=== PATIENT | female | born 1955 | race Caucasian/White ===

== ENCOUNTER 2018-12-16 19:06 | Emergency (ER) | payer BC, OTHER ==
[2018-12-16 19:19] VITALS: BP 159/78; PULSE 74; TEMP 98; BMI 33.1
[2018-12-16] MEDS ORDERED: KETOROLAC TROMETHAMINE 30 MG/1 ML VIAL IVPUSH ONE (20:03)
[2018-12-16] MEDS ORDERED: SODIUM CHLORIDE 1,000 ML IV ONE (20:03)
[2018-12-16] MEDS ORDERED: ONDANSETRON 4 MG/2 ML VIAL IVPUSH ONE (20:03)
[2018-12-16] MEDS ORDERED: KETOROLAC TROMETHAMINE 30 MG/1 ML VIAL ONE (20:09)
[2018-12-16] MEDS ORDERED: ONDANSETRON 4 MG/2 ML VIAL ONE (20:09)
--- NOTE | 2018-12-16 20:24 | PDOC ---
Documentation entered by Micki Morel SCRIBE, acting as scribe for Patti Nair MD. Patti Nair MD: This documentation has been prepared by the amandeepibe, Micki Morel SCRIBE, under my direction and personally reviewed by me in its entirety. I confirm that the documentation accurately reflects all work , treatment, procedures, and medical decision making performed by me. History of Present Illness - General Chief Complaint: Pain, Acute Stated Complaint: RT FLANK/ABD PAIN History Source: Patient Exam Limitations: No Limitations - History of Present Illness Initial Comments: 12/16/18 20:19 The patient is a 63-year-old female who presents to the emergency department with right flank pain and nausea. The patient reports on [employer] shift lead she was laying down on her left side when her put his hand over her right flank. The patient states she felt an immediate pain to the area and got up. The patient states she took some aleve, with relief. The patient reports since then the pain has been fluctuating in severity, associated with nausea and constipation. The patient reports the pain is aggravated with laying on her left side, bending or twist, with relief noted when laying on her right side. The patient reports a history of shingles and indicates the past 2 episodes have been similar to his symptoms. PAST MEDICAL HISTORY: Shingles, diverticulitis and asthma. PAST SURGICAL HISTORY: no significant history FAMILY HISTORY: no pertinent history SOCIAL HISTORY: Pt lives with family and is retired. MEDICATIONS: reviewed ALLERGIES: As per nursing notes General: No fevers or chills, no weakness, no weight loss HEENT: No change in vision. No sore throat,. No ear pain CardioVascular: No chest pain or shortness of breath Respiratory:No cough, or wheezing. Gastrointestinal: +nausea and constipation. No vomiting or diarrhea. No rectal bleeding Genitourinary: No dysuria, hematuria, or frequency Musculoskeletal: +right flank pain. No other joint or muscle pain or swelling Neurologic: No headache, vertigo, dizziness or loss of consciousness Psychiatric: nor depression Skin: No rashes or easy bruising Endocrine: no increased thirst or abnormal weight change Allergic: no skin or latex allergy All other systems reviewed and normal GENERAL: The patient is awake, alert, and fully oriented, in no acute distress. HEAD: Normal with no signs of trauma. EYES: Pupils equal, round and reactive to light, extraocular movements intact, sclera anicteric, conjunctiva clear. BACK: +tenderness on palpation to the right CVA area with questionable beginning vesicular rash/shingles. Lung: Lungs clear to auscultation bilateral EXTREMITIES: Normal range of motion, no edema. NEUROLOGICAL: Normal speech, normal gait. PSYCH: Normal mood, normal affect. SKIN: Warm, Dry, normal turgor, no rashes or lesions noted. 12/16/18 20:23 Assessment and plan: This is a 63-year-old female who comes in complaining of right flank pain. Patient has pain in a similar distribution to a dermatome. Patient said she has had shingles there in the past with similar type of pain. However this time there is some associated nausea and there does seem to be an intermittent nature to it. Patient has had the pain 2 days. Patient denied any urinary symptoms. Workup initiated including CBC, comp, UA, spiral CT to rule out kidney stones. 12/16/18 22:28 Patient's CAT scan was negative for any acute pathology specifically no kidney stones gallstones or any abnormalities. Patient started on Zovirax and will follow-up with her doctor. Patient given copy of her CAT scan and blood work. Past History - Past Medical History Allergies/Adverse Reactions: Allergies Allergy/AdvReac Type Severity Reaction Status Date / Time No Known Allergies Allergy Unverified 12/16/18 19:08 Home Medications: Ambulatory Orders Acyclovir [Zovirax -] 800 mg PO 5XD #35 tablet 12/16/18 Albuterol Sulfate Inhaler - [Ventolin Hfa Inhaler -] 1 puff IH PRN PRN 12/16/18 Atorvastatin Ca [Lipitor] 10 mg PO HS 12/16/18 Fluticasone/Vilanterol [Breo Ellipta 200-25 Mcg INH] 1 each IH DAILY 12/16/18 Losartan/Hydrochlorothiazide [Losartan-Hctz 50-12.5 mg Tab] 1 each PO DAILY 10/27 Montelukast Na [Singulair -] 10 mg PO HS 12/16/18 Tiotropium [place] [Spiriva] 18 mcg IH BID 12/16/18 *Physical Exam - Vital Signs Last Vital Signs Temp Pulse Resp BP Pulse Ox 98 F 74 16 159/78 97 12/16/18 19:11 12/16/18 19:11 12/16/18 19:11 12/16/18 19:11 12/16/18 19:11 ED Treatment Course - LABORATORY CBC & Chemistry Diagram: 12/16/18 20:20 12/16/18 20:20 - RADIOLOGY Radiology Studies Ordered: Category Date Time Status SPIRAL- RENAL-STONE CT [CT] Stat CT Scan 12/16/18 20:03 Ordered - Medications Given in the ED: ED Medications Discontinued Medications Generic Name Dose Route Start Last Admin Trade Name Amy PRN Reason Stop Dose Admin Ketorolac Tromethamine 30 mg 12/16/18 20:03 12/16/18 20:20 Toradol Injection - IVPUSH 12/16/18 20:04 30 mg ONCE ONE Administration Ondansetron HCl 4 mg 12/16/18 20:03 12/16/18 20:20 Zofran Injection IVPUSH 12/16/18 20:04 4 mg ONCE ONE Administration *DC/Admit/Observation/Transfer Diagnosis at time of Disposition: Rt flank pain - Discharge Dispostion Disposition: HOME Condition at time of disposition: Stable Decision to Admit order: No - Referrals - Patient Instructions Additional Instructions: Take Zovirax 1 tablet 5 times a day for 7 days this is treatment for shingles. In addition to that you can also take an anti-inflammatory such as naproxen or Aleve as directed on the bottle. Return to the emergency department immediately with ANY new, persistent or worsening symptoms. Continue any medications as previously prescribed by your physician. You should follow up with your primary doctor as soon as possible regarding today's emergency department visit. . Please make sure your doctor reviews the results of your emergency evaluation. Thank you for coming to the Emergency Department today for your care. It was a pleasure to see you today. Please note that your evaluation is INCOMPLETE until you follow-up with your doctor. - Post Discharge Activity
[2018-12-16 20:34] LABS: BASO % 1.1 % (0-2.0); EOS % 2.1 % (0-4.5); HEMATOCRIT 38.8 % (32.4-45.2); HEMOGLOBIN 12.6 GM/dl (10.7-15.3); LYMPH % 18.1 % (8-40); MCH 28.2 pg (25.7-33.7); MCHC 32.4 g/dl (32.0-36.0); MEAN CELL VOLUME 87.1 fl (80-96); MEAN PLT VOLUME 8.1 fl (7.5-11.1); MONO % 6.8 % (3.8-10.2); NEUT % 71.9 % (42.8-82.8); PLATELET COUNT 286 K/MM3 (134-434); RBC 4.46 M/mm3 (3.60-5.2); WHITE BLOOD COUNT 6.5 K/mm3 (4.0-10.8)
[2018-12-16 20:43] LABS: ALBUMIN 3.9 g/dl (3.4-5.0); BILIRUBIN,TOTAL 0.6 mg/dl (0.2-1); CREATININE 1.2 mg/dl (0.55-1.3); POTASSIUM 3.9 mmol/L (3.5-5.1); TOT PROT 6.7 g/dl (6.4-8.2)
[2018-12-16 21:56] LABS: EPITHELIAL CELLS FEW /hpf; URINE MUCUS 1+
[2018-12-16] MEDS ORDERED: ACYCLOVIR 400 MG TABLET PO ONE (22:24)
[2018-12-16] MEDS ORDERED: ACYCLOVIR 400 MG TABLET ONE (22:28)
== END 2018-12-16 22:33 | disposition home or self-care (01) ==
LOC: FER 19:06
PROC: 3E0333Z Introduction of Anti-inflammatory into Peripheral Vein, Percutaneous Approach (ICD-10-PCS; principal; 2018-12-16)
PROC: 3E033GC Introduction of Other Therapeutic Substance into Peripheral Vein, Percutaneous Approach (ICD-10-PCS; 2018-12-16)
PROC: 3E0337Z Introduction of Electrolytic and Water Balance Substance into Peripheral Vein, Percutaneous Approach (ICD-10-PCS; 2018-12-16)
DX: R10.31 Right lower quadrant pain (principal)
CPT/HCPCS: 36415; 74176-TC; 80053; 81003; 81015; 85025; 99283-25; J7030